=== PATIENT | male | born 1975 | race Caucasian/White ===

== ENCOUNTER 2016-12-29 11:55 | Inpatient (IN) | payer OTHER ==
[~2016-12-29] VITALS: Ht 154.9 cm; Wt 85.7 kg
--- NOTE | ~2016-12-29 | CATHLAB ---
[facility] [employer] [place] [address] INVASIVE PROCEDURE REPORT Name: SEJAL KRUEGER Room #: 243-P [facility] IN ..#: [id number] Admission: 12/29/16 Attend Phys: Siva Troncoso, Discharge: Date of : 75 Date of Service: 01/02/17 165 Report #: [id number] THIS REPORT FOR: //name// APPROVED REPORT Patient Details Patient Status: In-Patient Room #: The patient is a 41 year-old male Procedures Performed Left heart catheterization, selective left and right coronary angiography, measurement of left ventricular end-diastolic pressure, supervision of conscious sedation Indication Non-STEMI (>12 hrs to = 24 hrs) Risk Factors Hypercholesterolemia, Hypertension Procedure Narrative The Right Groin^ was infiltrated with 1% Lidocaine subcutaneous anesthesia. A PINNACLE 6FR Sheath #[id number] sheath was inserted into the RFA^. Coronary angiography was performed using coronary diagnostic catheters. The right coronary system was accessed and visualized with a JR4 catheter. The left coronary system was accessed and visualized with a JL4 catheter. Left ventricular/Aortic Valve gradient assessed via catheter pullback. Closure device was deployed with a 6 Fr MYNXGRIP 6/7F #[id number]. The patient tolerated the procedure well and there were no complications associated with the procedure. There was no hematoma. Intraoperative Conscious Sedation Sedation start time: 9::26 Case end Time: 9:36 Versed 2.0 mg Fluoro Time: 1.49 minutes Dose: 563 mGy Contrast Type and Amount: Omnipaque 80 ml Diagnostic Cath Left Main Normal origin and caliber which bifurcates into the left anterior descending and left circumflex. There is a distal 30-40% lesion identified which is not flow-limiting [facility] [address] [place] [address] INVASIVE PROCEDURE REPORT Name: SEJAL KRUEGER Room #: 243-P [facility] IN ..#: [id number] Admission: 12/29/16 Attend Phys: Siva Troncoso, Discharge: Date of : 75 Date of Service: 01/02/17 1651 Report #: [id number] LAD Moderate caliber type III vessel which courses in the anterior interventricular sulcus appeared to gives rise to a first septal santa's helper that has moderate irregularities. The first diagonal branch that originates as the LAD continues in the anterior interventricular sulcus towards the apex and terminating in the posterior apical wall. Diagonal 1 Small to moderate caliber vessel which is a 90% proximal lesion. The vessel then reconstitutes without high-grade flow-limiting lesions noted Circumflex Moderate caliber vessel which courses in the AV groove. The first third isn't eccentric 99% stenosis prior to a large lateral wall marginal branch. The vessel reconstitutes itself after SARWAT 2 flow without high-grade lesions Right Coronary Moderate caliber dominant vessel which has a 70-75% ostial lesion which caused pressure dampening. It then continues posteriorly were gives rise to posterior descending artery and a posterolateral wall branch R PDA Small to moderate caliber vessel with a proximal 90% lesion. Beyond this lesion the vessel has irregularities but no high-grade Left Ventriculography Left Ventriculography was not performed. Hemodynamics The aortic pressure is 140/72 mmHg with a mean of 98 mmHg. The left ventricular pressure is 130/4 mmHg with a mean of mmHg. The left ventricular end diastolic pressure is 22 mmHg. Conclusion 1. Coronary artery disease severe three-vessel 2. Mildly elevated left ventricular end-diastolic pressure 3. Recommend aortocoronary bypass grafting with DHILLON to the LAD SVGs to first diagonal left circumflex and posterior descending arteries. Recommendations Cardiac Rehabilitation Referral CABG Medications Administered Beta Chiara (any) <ELECTRONICALLY SIGNED> By: Jose J George MD 01/02/171650 50 50 Jose J George MD /INF
--- NOTE | ~2016-12-29 | EKG ---
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
--- NOTE | ~2016-12-29 | EKG ---
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 01/03/17 0751 Jaziel Roberto MD, [facility] /EPI
--- NOTE | ~2016-12-29 | EKG ---
[address] [address] ELECTROCARDIOGRAM REPORT Name: SEJAL KRUEGER Room #: 207-P ADM IN M.R.#: [id number] Admission: 12/29/16 Attend Phys: Siva Troncoso MD Discharge: Date of : 75 Report #: [id number] THIS REPORT FOR: //name// [facility] Test Date: 2016-12-29 Test Time: 20:11:38 Pat Name: SEJAL CARRINGTON Department: Room: 207 P Gender: M Seam Checker: Richard NAPIER : 1975 Requested By: Jose J Goerge Order Number: [id number] MD: Benjamin Del Valle Measurements Intervals [place] Rate: 56 P: 40 [place]: 160 QRS: 81 QRSD: 86 T: 72 QT: 427 QTc: 413 Interpretive Statements Sinus rhythm No previous ECG available for comparison Electronically Signed On 01-01-2017 22:02:44 CDT by Benjamin Del Valle [email or web address] <ELECTRONICALLY SIGNED> By: Benjamin Del Valle MD 01/01/172201 10 10 Benjamin Del Valle MD /KIANA
--- NOTE | ~2016-12-29 | EKG ---
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 : 1975 Requested By: Diana Rodriguez Order Number: [id number] MD: Jaziel Roberto Measurements Intervals [place] Rate: 90 P: 57 SC: 133 QRS: 88 QRSD: 84 T: 52 QT: 420 QTc: 514 Interpretive Statements Sinus rhythm Consider RVH or posterior infarct Prolonged QT interval Compared to ECG 12/29/2016 20:11:38 Myocardial infarct finding now present Prolonged QT interval now present Electronically Signed On 01-03-2017 7:47:08 CDT by Jaziel Roberto [email or web address] <ELECTRONICALLY SIGNED> By: Jaziel Roberto MD, [facility] 01/03/17 0747 1620 1620 Jaziel Roberto MD, [facility] /EPI
--- NOTE | ~2016-12-29 | EKG ---
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
--- NOTE | ~2016-12-29 | 2DMMODE ---
[facility] [address] [place] [address] 2 D/M-MODE ECHOCARDIOGRAM Name: SEJAL KRUEGER Room #: 207-P ADM IN M.R.#: [id number] Admission: 12/29/16 Attend Phys: Siva Troncoso, Discharge: Date of : 75 Date of Service: 12/29/16 1539 Report #: [id number] THIS REPORT FOR: //name// APPROVED REPORT Study performed: 12/29/2016 14:40:10 EXAM: Comprehensive 2D, Doppler, and color-flow Echocardiogram Patient Location: ER Room #: 2 Status: stat Other Information Study Quality: Adequate Indications Chest Pain 2D Dimensions RVDd: 39.97 mm LVEF(%): 62.91 (>50%) IVSd: 10.65 (7-11mm) LVOT Diam: 20.33 (18-24mm) LVDd: 52.28 mm PWd: 10.02 (7-11mm) Ascending Ao: 32.12 (22-36mm) LVDs: 34.35 (25-40mm) Aortic Root: 32.81 mm Malik's LVEF: 62.91 % Volumes Left Atrial Volume (Systole) Single Plane 4CH: 47.53 mL Single Plane 2CH: 54.50 mL LA ESV Index: 29.00 mL/m2 Aortic Valve AoV Peak Karlo.: 1.59 m/s AO Peak Gr.: 10.06 mmHg LVOT Max P.12 mmHg LVOT Max V: 1.24 m/s ELIZABET Vmax: 2.53 cm2 Mitral Valve E/A Ratio: 1.2 MV Decel. Time: 220.17 ms MV E Max Karlo.: 0.75 m/s MV A Karlo.: 0.65 m/s MV PHT: 63.85 ms IVRT: 96.89 ms [facility] [place] [address] 2 D/M-MODE ECHOCARDIOGRAM Name: SEJAL KRUEGER Room #: 207-P [facility] IN ..#: [id number] Admission: 12/29/16 Attend Phys: Siva Troncoso, Discharge: Date of : 75 Date of Service: 12/29/16 1539 Report #: [id number] Pulmonary Valve PV Peak Karlo.: 1.24 m/s PV Peak Gr.: 6.16 mmHg Pulmonary Vein P Vein S: 0.51 m/s P Vein A: 0.34 m/s P Vein D: 0.41 m/s P Vein A Dur.: 115.3 msec P Vein S/D Ratio: 1.24 Tricuspid Valve RAP Estimate: 5.00 mmHg Left Ventricle The left ventricle is normal size. There is normal LV segmental wall motion. There is normal left ventricular wall thickness. Left ventricular systolic function is normal. LVEF is 55-60%. Right Ventricle The right ventricle is normal size. The right ventricular systolic function is normal. Atria The left atrium size is normal. The right atrium size is normal. Aortic Valve The aortic valve is normal in structure. Trace aortic regurgitation. There is no aortic valvular stenosis. Mitral Valve The mitral valve is normal in structure. Trace mitral regurgitation. Tricuspid Valve The tricuspid valve is normal in structure. There is no tricuspid valve regurgitation noted. Pulmonic Valve The pulmonary valve is normal in structure. Trace pulmonic regurgitation. Great Vessels The aortic root is normal in size. The ascending aorta is normal in size. IVC is normal in size and collapses >50% with inspiration. [facility] [address] [place] [address] 2 D/M-MODE ECHOCARDIOGRAM Name: SEJAL KRUEGER Room #: 207-P [facility] IN M.R.#: [id number] Admission: 12/29/16 Attend Phys: Siva Troncoso, Discharge: Date of : 75 Date of Service: 12/29/16 1539 Report #: [id number] Pericardium There is no pericardial effusion. <Conclusion> The left ventricle is normal size. LVEF is 55-60%. The aortic valve is normal in structure. Trace aortic regurgitation. The mitral valve is normal in structure. Trace mitral regurgitation. The tricuspid valve is normal in structure. There is no tricuspid valve regurgitation noted. The pulmonary valve is normal in structure. Trace pulmonic regurgitation. <ELECTRONICALLY SIGNED> By: Jose J George MD 12/29/16 1539 1539 1539 Jose J George MD /INF
[2016-12-29 11:59] VITALS: BP 158/89
[2016-12-29 12:35] LABS: BASOPHILS 0.5 % (0.0-2.0); EOSINOPHILS 0.9 % (0.0-3.0); HEMOGLOBIN 15.8 gm/dL (14.0-18.0); LYMPHOCYTES 19.2 % (24.0-44.0); MCH 30.1 pg (26.0-34.0); MCV 83.4 fL (80.0-100.0); MONOCYTES 6.8 % (1.0-8.0); PLATELET COUNT 215 thou/uL (150-400); POLYS 72.6 % (36.0-66.0); RBC 5.27 mil/uL (4.50-6.00); RDW 12.8 % (10.5-14.5)
[2016-12-29 12:40] LABS: MANUAL DIFF NO
[2016-12-29 12:45] LABS: CALCIUM 9.3 mg/dL (8.5-10.1); CREATININE 0.8 mg/dL (0.7-1.3); POTASSIUM 3.4 mmol/L (3.5-5.1)
[2016-12-29 12:54] LABS: TROPONIN-I 12.91 ng/mL (<0.04-0.07)
[2016-12-29 13:59] LABS: APTT 27.1 Seconds (24.5-32.8)
[2016-12-29 15:32] VITALS: BP 126/86
[2016-12-29 15:48] VITALS: BP 139/93
[2016-12-29 19:30] VITALS: BP 134/76
[2016-12-30] VITALS (15 sets, daily range): BP systolic 114–144; BP diastolic 60–88
[2016-12-30 04:56] LABS: CHOLESTEROL 397 mg/dL (<200); HDL CHOLESTEROL 38 mg/dL (>40); LDL CHOLESTEROL 324 mg/dL (<100); TC:HDL 10.4 Ratio (Not establshd); TRIGLYCERIDE 176 mg/dL (<150); VLDL 35 mg/dL (<40)
[2016-12-30 04:57] LABS: SERUM ASSESSMENT Clear
[2016-12-31 03:39] VITALS: BP 114/63
[2016-12-31 07:59] VITALS: BP 116/69
[2016-12-31 11:25] VITALS: BP 128/65
[2016-12-31 19:59] VITALS: BP 118/76
[2017-01-01 03:52] VITALS: BP 110/73
[2017-01-01 07:45] VITALS: BP 112/64
[2017-01-01 11:53] VITALS: BP 131/78
[2017-01-01 15:51] VITALS: BP 119/74
[2017-01-01 20:12] VITALS: BP 128/59
[2017-01-02 03:59] LABS: HEMATOCRIT 39.3 % (42.0-52.0); HEMOGLOBIN 13.9 gm/dL (14.0-18.0); MCH 29.8 pg (26.0-34.0); MCHC 35.4 g/dL (28.0-37.0); MCV 84.4 fL (80.0-100.0); RBC 4.65 mil/uL (4.50-6.00); RDW 12.2 % (10.5-14.5); WBC 8.5 thou/uL (4.0-11.0)
[2017-01-02 04:02] LABS: CALCIUM 8.9 mg/dL (8.5-10.1); CREATININE 0.9 mg/dL (0.7-1.3)
[2017-01-02 04:04] VITALS: BP 113/69
[2017-01-02 04:05] VITALS: BP 99/52
[2017-01-02 14:02] LABS: POC BE -4 mmol/L (-2.0 to +3.0); POC CA IONIZED 4.3 mg/dL (4.5-5.3); POC FiO2 80 %; POC GLUCOSE 213 mg/dL (70-99); POC HCO3 22.7 mmol/L (22.0-26.0); POC HEMOGLOBIN 9.9 g/dL (14.0-18.0); POC POTASSIUM 4.2 mmol/L (3.5-5.1); POC SODIUM 134 mmol/L (136-145); POC pH 7.293 (7.360-7.450)
[2017-01-02 14:02] LABS: POC BE -5 mmol/L (-2.0 to +3.0); POC CA IONIZED 4.3 mg/dL (4.5-5.3); POC FiO2 100 %; POC GLUCOSE 190 mg/dL (70-99); POC HCO3 20.8 mmol/L (22.0-26.0); POC HEMOGLOBIN 9.9 g/dL (14.0-18.0); POC POTASSIUM 4.3 mmol/L (3.5-5.1); POC SODIUM 131 mmol/L (136-145); POC pCO2 40.8 mmHg (35.0-45.0); POC pH 7.317 (7.360-7.450)
[2017-01-02 14:02] LABS: POC BE 0 mmol/L (-2.0 to +3.0); POC CA IONIZED 4.2 mg/dL (4.5-5.3); POC FiO2 90 %; POC GLUCOSE 202 mg/dL (70-99); POC HCO3 25.5 mmol/L (22.0-26.0); POC HEMOGLOBIN 9.2 g/dL (14.0-18.0); POC POTASSIUM 3.9 mmol/L (3.5-5.1); POC SODIUM 135 mmol/L (136-145); POC pCO2 48.1 mmHg (35.0-45.0); POC pH 7.332 (7.360-7.450)
[2017-01-02 14:02] LABS: POC BE 0 mmol/L (-2.0 to +3.0); POC CA IONIZED 4.5 mg/dL (4.5-5.3); POC FiO2 100 %; POC GLUCOSE 141 mg/dL (70-99); POC HCO3 23.9 mmol/L (22.0-26.0); POC HEMOGLOBIN 12.6 g/dL (14.0-18.0); POC POTASSIUM 4.4 mmol/L (3.5-5.1); POC SODIUM 134 mmol/L (136-145); POC pCO2 36.3 mmHg (35.0-45.0); POC pH 7.426 (7.360-7.450)
[2017-01-02 14:02] LABS: POC BE 0 mmol/L (-2.0 to +3.0); POC CA IONIZED 4.2 mg/dL (4.5-5.3); POC FiO2 80 %; POC GLUCOSE 213 mg/dL (70-99); POC HCO3 25.7 mmol/L (22.0-26.0); POC HEMOGLOBIN 9.5 g/dL (14.0-18.0); POC POTASSIUM 3.9 mmol/L (3.5-5.1); POC SODIUM 136 mmol/L (136-145); POC pCO2 49.1 mmHg (35.0-45.0); POC pH 7.327 (7.360-7.450)
[2017-01-02 14:02] LABS: POC BE -4 mmol/L (-2.0 to +3.0); POC CA IONIZED 5.2 mg/dL (4.5-5.3); POC FiO2 100 %; POC GLUCOSE 183 mg/dL (70-99); POC HCO3 22.4 mmol/L (22.0-26.0); POC HEMOGLOBIN 8.8 g/dL (14.0-18.0); POC POTASSIUM 3.8 mmol/L (3.5-5.1); POC SODIUM 135 mmol/L (136-145); POC pCO2 42.4 mmHg (35.0-45.0)
[2017-01-02 14:02] LABS: POC BE -2 mmol/L (-2.0 to +3.0); POC CA IONIZED 4.3 mg/dL (4.5-5.3); POC FiO2 100 %; POC GLUCOSE 194 mg/dL (70-99); POC HCO3 23.9 mmol/L (22.0-26.0); POC HEMOGLOBIN 9.5 g/dL (14.0-18.0); POC SODIUM 131 mmol/L (136-145); POC pCO2 44.3 mmHg (35.0-45.0)
[2017-01-02 14:02] LABS: POC BE -4 mmol/L (-2.0 to +3.0); POC CA IONIZED 4.8 mg/dL (4.5-5.3); POC FiO2 100 %; POC GLUCOSE 133 mg/dL (70-99); POC HCO3 22.2 mmol/L (22.0-26.0); POC HEMOGLOBIN 11.6 g/dL (14.0-18.0); POC POTASSIUM 3.7 mmol/L (3.5-5.1); POC SODIUM 137 mmol/L (136-145); POC pCO2 42.3 mmHg (35.0-45.0); POC pH 7.328 (7.360-7.450)
[2017-01-02 14:02] LABS: POC BE 2 mmol/L (-2.0 to +3.0); POC CA IONIZED 4.7 mg/dL (4.5-5.3); POC FiO2 100 %; POC GLUCOSE 128 mg/dL (70-99); POC HCO3 26.1 mmol/L (22.0-26.0); POC HEMOGLOBIN 12.6 g/dL (14.0-18.0); POC SODIUM 135 mmol/L (136-145); POC pH 7.468 (7.360-7.450)
[2017-01-02 14:38] LABS: HEMATOCRIT 39.7 % (42.0-52.0); HEMOGLOBIN 13.7 gm/dL (14.0-18.0); MCH 29.5 pg (26.0-34.0); MCHC 34.6 g/dL (28.0-37.0); MCV 85.1 fL (80.0-100.0); RBC 4.67 mil/uL (4.50-6.00); RDW 12.4 % (10.5-14.5)
[2017-01-02 14:43] LABS: WBC 26.4 thou/uL (4.0-11.0)
[2017-01-02 14:48] LABS: CALCIUM 8.7 mg/dL (8.5-10.1); CREATININE 1.4 mg/dL (0.7-1.3); MAGNESIUM 2.7 mg/dL (1.8-2.4); POTASSIUM 3.5 mmol/L (3.5-5.1)
[2017-01-02 15:01] LABS: ABG SAMPLE TYPE ARTERIAL; BE(vivo) -8.1 mmol/L (-2 to +3); HCO3 18.8 mmol/L (22.0-26.0); O2Hb 96.4 % (92.0-98.0); PCO2 43.7 mmHg (35.0-45.0); PO2 125.5 mmHg (80.0-100.0); tCO2 20.2 mmol/L (24.0-30.0)
[2017-01-02 15:02] LABS: LACTATE 6.87 mmol/L (0.5-2.0); STICK SITE ALINE; TIDAL VOLUME 700 ml; pH 7.252 (7.360-7.450)
[2017-01-02 15:10] LABS: APTT 26.4 Seconds (24.5-32.8); INR 1.2; PROTIME 12.4 Seconds (9.3-11.4)
[2017-01-02 16:10] LABS: ABG SAMPLE TYPE ARTERIAL; BE(vivo) -4.3 mmol/L (-2 to +3); HCO3 20.4 mmol/L (22.0-26.0); LACTATE 6.95 mmol/L (0.5-2.0); O2(CT) 18.8 mL/dL (15.0-23.0); O2Hb 95.2 % (92.0-98.0); PCO2 36.3 mmHg (35.0-45.0); PO2 87.9 mmHg (80.0-100.0); STICK SITE ALINE; TIDAL VOLUME 700 ml; pH 7.367 (7.360-7.450); sO2 96.5 % (92.0-98.0); tCO2 21.5 mmol/L (24.0-30.0)
[2017-01-02 17:52] LABS: ABG SAMPLE TYPE ARTERIAL; BE(vivo) -1.9 mmol/L (-2 to +3); HCO3 22.7 mmol/L (22.0-26.0); O2(CT) 19.9 mL/dL (15.0-23.0); O2Hb 95.5 % (92.0-98.0); PCO2 38.4 mmHg (35.0-45.0); PO2 90.4 mmHg (80.0-100.0); sO2 96.9 % (92.0-98.0); tCO2 23.9 mmol/L (24.0-30.0)
[2017-01-02 17:53] LABS: LACTATE 6.45 mmol/L (0.5-2.0); STICK SITE ALINE; TIDAL VOLUME 700 ml
[2017-01-02 18:20] LABS: ABG SAMPLE TYPE ARTERIAL; BE(vivo) -2.8 mmol/L (-2 to +3); HCO3 21.9 mmol/L (22.0-26.0); O2(CT) 19.9 mL/dL (15.0-23.0); PCO2 37.7 mmHg (35.0-45.0); PO2 97.9 mmHg (80.0-100.0); pH 7.381 (7.360-7.450); sO2 97.4 % (92.0-98.0)
[2017-01-02 18:21] LABS: LACTATE 5.97 mmol/L (0.5-2.0); Pressure Support 6 cm H20; STICK SITE ALINE
[2017-01-02 18:30] LABS: HEMATOCRIT 40.7 % (42.0-52.0); HEMOGLOBIN 14.3 gm/dL (14.0-18.0); MCH 29.4 pg (26.0-34.0); MCHC 35.2 g/dL (28.0-37.0); MCV 83.5 fL (80.0-100.0); RBC 4.88 mil/uL (4.50-6.00); RDW 12.5 % (10.5-14.5); WBC 22.6 thou/uL (4.0-11.0)
[2017-01-02 18:38] LABS: CALCIUM 8.5 mg/dL (8.5-10.1); CREATININE 1.3 mg/dL (0.7-1.3); POTASSIUM 3.6 mmol/L (3.5-5.1)
[2017-01-02 20:31] LABS: ABG SAMPLE TYPE ARTERIAL; HCO3 23.3 mmol/L (22.0-26.0); LACTATE 3.85 mmol/L (0.5-2.0); O2(CT) 19.8 mL/dL (15.0-23.0); O2Hb 92.9 % (92.0-98.0); PO2 69.7 mmHg (80.0-100.0); pH 7.406 (7.360-7.450); sO2 94.2 % (92.0-98.0); tCO2 24.5 mmol/L (24.0-30.0)
[2017-01-02 20:32] LABS: STICK SITE ALINE
[2017-01-03] VITALS (18 sets, daily range): BP systolic 95–146; BP diastolic 62–85
[2017-01-03 05:48] LABS: MCH 29.7 pg (26.0-34.0); MCHC 35.3 g/dL (28.0-37.0); MCV 84.1 fL (80.0-100.0); RBC 4.39 mil/uL (4.50-6.00); RDW 12.3 % (10.5-14.5)
[2017-01-03 06:09] LABS: CALCIUM 8.3 mg/dL (8.5-10.1); CREATININE 0.9 mg/dL (0.7-1.3); POTASSIUM 4.6 mmol/L (3.5-5.1)
[2017-01-04] VITALS (16 sets, daily range): BP systolic 126–158; BP diastolic 71–90
[2017-01-05 04:34] VITALS: BP 156/93
[2017-01-05 11:44] VITALS: BP 132/86
[2017-01-05 16:45] VITALS: BP 129/77
[2017-01-05 20:44] VITALS: BP 143/84
[2017-01-06 04:00] VITALS: BP 132/88
[2017-01-06 04:28] LABS: MAGNESIUM 2.1 mg/dL (1.8-2.4); POTASSIUM 3.9 mmol/L (3.5-5.1)
[2017-01-06 04:58] LABS: HEMATOCRIT 36.2 % (42.0-52.0)
[2017-01-06 07:25] VITALS: BP 133/88
[2017-01-06] MEDS ORDERED: PACERONE 200 M200 M1 PO (09:28)
[2017-01-06] MEDS ORDERED: ASPIRIN325 PO (09:29)
[2017-01-06] MEDS ORDERED: ATORVASTATIN CA40 MG PO (09:29)
[2017-01-06] MEDS ORDERED: ACETAMINOPHEN325 M1 PO (09:29)
[2017-01-06] MEDS ORDERED: LOPRESSOR50 PO (09:29)
[2017-01-06 09:55] VITALS: BP 132/88
[2017-01-06 11:00] VITALS: BP 132/67
== END 2017-01-06 15:00 | disposition home or self-care (01) | DRG 234 ==
LOC: ER 11:55 → EROBS 14:06 → ICU 14:06 → 2N 14:06 → EROBS 15:33 → 2N 15:35 → TBA 01-02 07:27 → ICU 01-02 14:47 → 2N 01-04 14:43
PROVIDERS: Emergency Medicine; Internal Medicine; Nurse Practitioner; Thoracic Surgery (Cardiothoracic Vascular Surgery)
PROC: 4A023N7 Measurement of Cardiac Sampling and Pressure, Left Heart, Percutaneous Approach (ICD-10-PCS; principal; 2017-01-02)
PROC: 021209W Bypass Coronary Artery, Three Arteries from Aorta with Autologous Venous Tissue, Open Approach (ICD-10-PCS; principal; 2017-01-02)
PROC: B2111ZZ Fluoroscopy of Multiple Coronary Arteries using Low Osmolar Contrast (ICD-10-PCS; principal; 2017-01-02)
PROC: B24BZZ4 Ultrasonography of Heart with Aorta, Transesophageal (ICD-10-PCS; principal; 2017-01-02)
PROC: 02100Z9 Bypass Coronary Artery, One Artery from Left Internal Mammary, Open Approach (ICD-10-PCS; principal; 2017-01-02)
PROC: 5A1221Z Performance of Cardiac Output, Continuous (ICD-10-PCS; principal; 2017-01-02)
PROC: 06BQ0ZZ Excision of Left Saphenous Vein, Open Approach (ICD-10-PCS; principal; 2017-01-02)
PROC: B2151ZZ Fluoroscopy of Left Heart using Low Osmolar Contrast (ICD-10-PCS; principal; 2017-01-02)
DX: I21.4 Non-ST elevation (NSTEMI) myocardial infarction (principal); I25.10 Atherosclerotic heart disease of native coronary artery without angina pectoris; E78.5 Hyperlipidemia, unspecified; E11.9 Type 2 diabetes mellitus without complications; E87.5 Hyperkalemia; I10 Essential (primary) hypertension; Z79.899 Other long term (current) drug therapy; Z79.82 Long term (current) use of aspirin; Z79.4 Long term (current) use of insulin
CPT/HCPCS: 10078; 10081; 47000; 47001; 47002; 47297; 50010; 50249; 50409; 50456; 50497; 50668; 51301; 52131; 52190; 52259; 53327; 53358; 54118; 56524; 56525; 56526; 56527; 56528; 56531; 56534; 56639; 56660; 56668; 56760; 56898; 57093; 62110; 62950; 64029; 65002; 65003; 65020; 65043; 65090; 65120

== ENCOUNTER → 2017-01-25 | Outpatient (CLI) | payer OTHER ==
[~2017-01-25] MED LIST: ACETAMINOPHEN325 M1 PO; ASPIRIN325 PO; ATORVASTATIN CA40 MG PO; LOPRESSOR50 PO; PACERONE 200 M200 M1 PO
== END ==
LOC: RAD 15:56
DX: Z98.890 Other specified postprocedural states (principal)